=== PATIENT | male | born 1960 ===

== ENCOUNTER 2016-12-03 13:46 | Inpatient (IN) | payer OTHER ==
[~2016-12-03] VITALS: Ht 167.6 cm; Wt 68.0 kg
[2017-01-12] MEDS ORDERED: TOPROL XL25 M1 PO (12:21)
[2017-01-12] MEDS ORDERED: LANTUS SOL100 UNIT/1 (12:22)
[2017-01-12] MEDS ORDERED: NOVOLIN N100 UNIT/1 IM (12:22)
== END 2017-01-26 15:37 | disposition home or self-care (01) | DRG 460 ==
LOC: SURG 01-08 11:00 → O/R 01-25 05:30 → SURG 01-25 10:00
PROVIDERS: Orthopaedic Surgery Orthopaedic Surgery of the Spine
PROC: 0SG00AJ Fusion of Lumbar Vertebral Joint with Interbody Fusion Device, Posterior Approach, Anterior Column, Open Approach (ICD-10-PCS; 2017-01-25)
PROC: 0ST20ZZ Resection of Lumbar Vertebral Disc, Open Approach (ICD-10-PCS; 2017-01-25)
PROC: 07DS3ZZ Extraction of Vertebral Bone Marrow, Percutaneous Approach (ICD-10-PCS; 2017-01-25)
PROC: 0SG00A0 Fusion of Lumbar Vertebral Joint with Interbody Fusion Device, Anterior Approach, Anterior Column, Open Approach (ICD-10-PCS; principal; 2017-01-25 10:00)
DX: M51.16 Intervertebral disc disorders with radiculopathy, lumbar region (principal); M48.061 Spinal stenosis, lumbar region without neurogenic claudication; I10 Essential (primary) hypertension; E11.9 Type 2 diabetes mellitus without complications